=== PATIENT | female | born 1990 | race Caucasian/White ===

== ENCOUNTER 2017-12-20 04:06 | Emergency (ER) | payer SELFPAY ==
--- NOTE | 2017-12-20 04:17 | EDM.PDOC ---
ED HPI GENERAL MEDICAL PROBLEM - General Stated Complaint: AMBULANCE Time Seen by Provider: 12/20/17 04:13 - History of Present Illness INITIAL COMMENTS - FREE TEXT/NARRATIVE: HISTORY AND PHYSICAL: History of present illness: Patient 27-year-old female with history of self stimulating behavior presents and custody of law enforcement for self mutilating behavior in the form of cutting to her right lower leg which he sustained approximately 3 cm moderate depth laceration along with multiple superficial lacerations she denies update tetanus. This is old behavior for the patient she does have counseling for this she denies any suicidal or homicidal ideation Review of systems: As per history of present illness and below otherwise all systems reviewed and negative. Past medical history: As per history of present illness and as reviewed below otherwise noncontributory. Surgical history: As per history of present illness and as reviewed below otherwise noncontributory. Social history: No reported history of drug or alcohol abuse. Family history: As per history of present illness and as reviewed below otherwise noncontributory. Physical exam: HEENT: Atraumatic, normocephalic, pupils reactive, negative for conjunctival pallor or scleral icterus, mucous membranes moist, throat clear, neck supple, nontender, trachea midline. Lungs: Clear to auscultation, breath sounds equal bilaterally, chest nontender. Heart: S1S2, regular, negative for clicks, rubs, or JVD. Abdomen: Soft, nondistended, nontender. Negative for masses or hepatosplenomegaly. Negative for costovertebral tenderness. Pelvis: Stable nontender. Genitourinary: Deferred. Rectal: Deferred. Extremities: Patient has multiple superficial abrasions to her right leg with multiple superficial lacerations and one laceration is moderate depth approximately 3 cm. Neuro: Awake, alert, oriented. Cranial nerves II through XII unremarkable. Cerebellum unremarkable. Motor and sensory unremarkable throughout. Exam nonfocal. Diagnostics: None Therapeutics: Patient was anesthetized 1% lidocaine without epinephrine irrigated with copious amounts 0.9 normal saline prepped and draped in sterile manner and closed with 4-0 nylon interrupted sutures stratus was applied Impression: #1 self mutilating Behavior #2 laceration#3 medically clear for police hold Definitive disposition and diagnosis as appropriate pending reevaluation and review of above. ED ROS GENERAL - Review of Systems Review Of Systems: ROS reveals no pertinent complaints other than HPI. ED EXAM, GENERAL - Physical Exam Exam: See Below (See dictation) Departure - Departure Time of Disposition: 04:16 Disposition: Home, Self-Care 01 Condition: Good Clinical Impression: Leg laceration, Self mutilating behavior, Medical clearance for incarceration - Discharge Information Additional Instructions: The following information is given to patients seen in the emergency department who are being discharged to home. This information is to outline your options for follow-up care. We provide all patients seen in our emergency department with a follow-up referral. The need for follow-up, as well as the timing and circumstances, are variable depending upon the specifics of your emergency department visit. If you don't have a primary care physician on staff, we will provide you with a referral. We always advise you to contact your personal physician following an emergency department visit to inform them of the circumstance of the visit and for follow-up with them and/or the need for any referrals to a consulting specialist. The emergency department will also refer you to a specialist when appropriate. This referral assures that you have the opportunity for followup care with a specialist. All of these measure are taken in an effort to provide you with optimal care, which includes your followup. Under all circumstances we always encourage you to contact your private physician who remains a resource for coordinating your care. When calling for followup care, please make the office aware that this follow-up is from your recent emergency room visit. If for any reason you are refused follow-up, please contact the [facility] emergency department at and asked to speak to the emergency department charge nurse. Wound care is discussed suture removal 10-14 days return as needed as discussed follow-up private medical doctor
[2017-12-20] MEDS ORDERED: Diphtheria,Pertussis(Acell),Tetanus Vaccine 0.5 ML Syringe IM ONE (04:19)
== END 2017-12-20 06:20 ==
LOC: MW.ED 04:06
DX: S81.811A Laceration without foreign body, right lower leg, initial encounter (principal); Z02.89 Encounter for other administrative examinations; Z23 Encounter for immunization; X78.9XXA Intentional self-harm by unspecified sharp object, initial encounter
CPT/HCPCS: 90471; 90715; 99283-25

== ENCOUNTER 2020-04-18 10:33 | Inpatient (IN) | payer MEDICAID ==
[2020-04-18] MEDS: Lactated Ringers 1,000 ML IV SCH ×2 (10:15→11:20)
[2020-04-18] MEDS ORDERED: Sodium Chloride 0.9% 2.5 ML Syringe FLUSH PRN (10:38)
[2020-04-18] MEDS ORDERED: Citric Acid/Sodium Citrate Solution 30 ML Cup PO ONE (10:38)
[2020-04-18] MEDS ORDERED: Sodium Chloride 0.9% 10 ML Syringe FLUSH PRN (10:38)
[2020-04-18] MEDS ORDERED: ceFAZolin 2 GM in Premix Bag 1 BAG IV ONE (10:38)
[2020-04-18] MEDS ORDERED: Sodium Chloride 0.9% 10 ML SDV IV PRN (10:38)
[2020-04-18] MEDS ORDERED: Oxytocin/0.9 % Sodium Chloride 30 UNIT/500 ML BAG IV SCH (10:45)
--- NOTE | 2020-04-18 11:24 | PCM.PREANE ---
Preanesthetic Assessment - Anesthesia/Transfusion/Family Hx Anesthesia History: Prior Anesthesia Without Reaction Transfusion History: No Prior Transfusion(s) - Review of Systems General: No Symptoms Pulmonary: No Symptoms Cardiovascular: No Symptoms Gastrointestinal: No Symptoms Neurological: No Symptoms Other: Reports: None - Physical Assessment NPO Status Date: 04/18/20 NPO Status Time: 00:00 Vital Signs: bp 101/64, rr 17, p 95, spo2 99% room air, temp 97.5 Height: 1.7 m Weight: 74.843 kg ASA Class: 2 Mental Status: Alert & Oriented x3 Airway Class: Mallampati = 2 Dentition: Reports: Normal Dentition Thyro-Mental Finger Breadths: 3 Mouth Opening Finger Breadths: 3 ROM/Head Extension: Full Lungs: Clear to Auscultation, Normal Respiratory Effort Cardiovascular: Regular Rate, Regular Rhythm - Lab Values: Laboratory Last Values WBC 10.51 K/uL (4.0-11.0) 04/18/20 10:45 RBC 4.03 M/uL (4.30-5.90) L 04/18/20 10:45 Hgb 12.3 g/dL (12.0-16.0) 04/18/20 10:45 Hct 36.2 % (36.0-46.0) 04/18/20 10:45 MCV 89.8 fL (80.0-98.0) 04/18/20 10:45 MCH 30.5 pg (27.0-32.0) 04/18/20 10:45 MCHC 34.0 g/dL (31.0-37.0) 04/18/20 10:45 RDW Std Deviation 45.4 fl (28.0-62.0) 04/18/20 10:45 RDW Coeff of Heaven 14 % (11.0-15.0) 04/18/20 10:45 Plt Count 254 K/uL (150-400) 04/18/20 10:45 MPV 10.20 fL (7.40-12.00) 04/18/20 10:45 Nucleated RBC % 0.0 /100WBC 04/18/20 10:45 Nucleated RBCs # 0 K/uL 04/18/20 10:45 - Allergies Allergies/Adverse Reactions: Allergies Allergy/AdvReac Type Severity Reaction Status Date / Time No Known Allergies Allergy Verified 04/18/20 10:37 - Acknowledgements Anesthesia Type Planned: Spinal (The patient understands and accepts the anesthetic risks and benefits of spinal including failed spinal requiring conversion to a general anesthetic. All questions answered. The patient has consented. 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: Musculoskeletal History: Reports: Fibromyalgia Neurological History: Reports: None Psychiatric History: Reports: Anxiety, Bipolar, Depression Endocrine/Metabolic History: Reports: None Hematologic History: Reports: None Immunologic History: Reports: None Oncologic (Cancer) History: Reports: None Dermatologic History: Reports: None - Past Surgical History Head Surgeries/Procedures: Reports: None HEENT Surgical History: Reports: Other (See Below) (wisdom teeth extraction) Cardiovascular Surgical History: Reports: None Respiratory Surgical History: Reports: None GI Surgical History: Reports: None Female Surgical History: Reports: Section Endocrine Surgical History: Reports: None Neurological Surgical History: Reports: None Musculoskeletal Surgical History: Reports: Other (See Below) Other Musculoskeletal Surgeries/Procedures:: left bunionectomy Oncologic Surgical History: Reports: None Dermatological Surgical History: Reports: None - History Comment History Comment: waiting for blood type - SUBSTANCE USE Tobacco Use Status *Q: Current Every Day Tobacco User Tobacco Use Within Last Twelve Months: Cigarettes Second Hand Smoke Exposure: Yes Days Per Week of Alcohol Use: 0 Recreational Drug Use History: No - HOME MEDS Home Medications: Home Meds Acetaminophen [Tylenol Extra Strength] 1 - 2 tab PO ASDIRECTED PRN 02/18/20 [History] Calcium Carbonate [Tums Extra Strength] 1 - 2 tab CHEW ASDIRECTED PRN 02/18/20 [History] Gabapentin [Neurontin] 600 mg PO TID 02/18/20 [History] Pnv No.95/Ferrous Fum/Folic AC [ Tablet] 1 tab PO DAILY 02/18/20 [History] lamoTRIgine [LaMICtal] 150 mg PO BID 02/18/20 [History] busPIRone [Buspar] 10 mg PO BID 04/12/20 [History] - CURRENT (IN HOUSE) MEDS Current Meds: Current Medications Oxytocin/Sodium Chloride (Oxytocin 30 Unit/500 Ml-Ns) 30 unit in 500 mls @ 250 mls/hr IV TITRATE SHAW Lactated Ringer's (Ringers, Lactated) 1,000 mls @ 500 mls/hr IV BOLUS [facility] Last Admin: 04/18/20 11:20 Dose: 999 mls/hr Documented by: Sodium Chloride (Saline Flush) 10 ml FLUSH ASDIRECTED PRN PRN Reason: Keep Vein Open Sodium Chloride (Saline Flush) 2.5 ml FLUSH ASDIRECTED PRN PRN Reason: Keep Vein Open Sodium Chloride (Normal Saline) 10 ml IV ASDIRECTED PRN PRN Reason: IV Use Discontinued Medications Citric Acid/Sodium Citrate (Bicitra Solution) 30 ml PO ONETIME ONE Stop: 04/18/20 10:39 Cefazolin Sodium/Dextrose 2 gm (/ Premix) 50 mls @ 100 mls/hr IV ONETIME ONE Stop: 04/18/20 11:07
[2020-04-18] MEDS ORDERED: Morphine PF 10 MG/10 ML SDV ONE (11:25)
[2020-04-18] MEDS ORDERED: ceFAZolin/Dextrose,Iso-Osmotic 2 GM/50 ML Duplex Bag IV ONE (11:43)
[2020-04-18] MEDS ORDERED: Oxytocin 10 Units/1 ML SDV ONE (11:44)
[2020-04-18] MEDS ORDERED: Ondansetron 4 MG/2 ML SDV ONE (12:38)
[2020-04-18] MEDS ORDERED: Dexamethasone 4 MG/ML 5 ML MDV ONE (12:38)
[2020-04-18] MEDS ORDERED: diphenhydrAMINE 50 MG/ML SDV IVPUSH PRN ×2 (12:54→13:06)
[2020-04-18] MEDS ORDERED: Naloxone 0.4 MG/ML Syringe IVPUSH PRN (12:54)
[2020-04-18] MEDS ORDERED: Acetaminophen/HYDROcodone 325-5 MG Tab PO PRN (12:54)
[2020-04-18] MEDS ORDERED: Acetaminophen/oxyCODONE 325-5 MG Tab PO PRN (12:54)
[2020-04-18] MEDS ORDERED: Ketorolac 30 MG/ML SDV ONE (12:58)
[2020-04-18] MEDS ORDERED: Lanolin 100% Cream 7 GM Tube TOP PRN (13:06)
[2020-04-18] MEDS ORDERED: Bisacodyl 10 MG Supp RECTAL PRN (13:06)
[2020-04-18] MEDS ORDERED: Oxytocin 10 Units/1 ML SDV IM PRN (13:06)
[2020-04-18] MEDS ORDERED: Ibuprofen 800 MG Tab PO PRN (13:06)
[2020-04-18] MEDS ORDERED: Ondansetron 4 MG/2 ML SDV IVPUSH PRN (13:06)
[2020-04-18] MEDS ORDERED: Misoprostol 200 MCG Tab RECTAL PRN (13:06)
[2020-04-18] MEDS ORDERED: Methylergonovine 0.2 MG/1 ML Amp IM PRN (13:06)
[2020-04-18] MEDS ORDERED: Tranexamic Acid 1,000 MG in Sodium Chloride 0.9% 100 ML IV PRN (13:06)
[2020-04-18] MEDS ORDERED: Oxytocin/Lactated Ringers 30 UNIT/500 ML BAG IV SCH (13:15)
[2020-04-18] MEDS ORDERED: Lactated Ringers 1,000 ML IV SCH (13:15)
--- NOTE | 2020-04-18 13:16 | PCM.OPNOTE ---
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 IUGR. Anti-[place] antibodies. Bicornuate uterus. History of section x1, declines trial of labor. Depression/Anxiety Post-Op Diagnosis: 29yo @ 37w4d. IUGR. Anti-Becka antibodies. Bicornuate uterus. History of section x1, declines trial of labor. Depression/Anxiety Anesthesia Technique: Spinal Primary Surgeon: Ifrah Mills Pathology: Placenta sent to pathology for IUGR Fluid Replacement, Intraop: 2,900 Output, Urine Amount: 25 EBL in mLs: 400 Complications: None Condition: Good
--- NOTE | 2020-04-18 14:00 | PCM.POSTAN ---
POST ANESTHESIA ASSESSMENT - MENTAL STATUS Mental Status: Alert - RESPIRATORY Respiratory Status: Respiratory Rate WNL - CARDIOVASCULAR CV Status: Pulse Rate WNL, Slow Pulse Rate - GASTROINTESTINAL GI Status: No Symptoms - POST OP HYDRATION Hydration Status: Adequate & Stable
--- NOTE | 2020-04-18 14:14 | OR ---
SURGEON: Ifrah Mills MD DATE OF PROCEDURE: 04/18/2020 PREOPERATIVE DIAGNOSES: 1. 29-year-old, G3, P1-0-1-1 at 37 weeks' and 3 days' gestation. 2. Intrauterine growth restriction. 3. 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 4. Bicornuate uterus. 5. History of delivery x1 and declines trial of labor. 6. Depression and anxiety. 7. Fibromyalgia. POSTOPERATIVE DIAGNOSES: 1. 29-year-old, G3, P2-0-1-2 at 37 weeks' and 3 days' gestation. 2. Intrauterine growth restriction. 3. 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 4. Bicornuate uterus. 5. History of delivery x1 and declines trial of labor. 6. Depression and anxiety. 7. Fibromyalgia. PROCEDURE: Repeat low transverse section via Pfannenstiel. ANESTHESIA: Spinal by Dr. Guadarrama. IV FLUIDS: 2900 mL LR. URINE OUTPUT: 25 mL clear yellow urine. ESTIMATED BLOOD LOSS: 400 mL. FINDINGS: Live male infant in cephalic presentation. score of 8 and 9 at one and five minutes respectively. Weight 2810 g. Fetus in the right horn of the bicornuate uterus. Normal-appearing ovaries and tubes. Placenta sent to pathology due to intrauterine growth restriction. INDICATION: This is a 29-year-old G3, P1-0-1-1, who presented at 37 weeks' and 3 days' gestation for planned repeat delivery. At 36 weeks' and 3 days' gestation, the patient had a growth restriction by her growth ultrasound by maternal medicine which discovered intrauterine growth restriction. monitoring was being performed due to Becka immunization of the patient. She had a bicornuate uterus and history of delivery x1. She declined trial of labor. Preop COVID test was negative. DESCRIPTION OF PROCEDURE: The patient was taken to the operating room, where spinal anesthesia was obtained. She was placed in dorsal supine position with a leftward tilt. She was prepared and draped in normal sterile fashion. A Pfannenstiel skin incision was made using the previous scar and carried deep to the underlying layer of fascia with the scalpel and Bovie. Fascia was incised in the midline and the incision extended laterally with curved Mac scissors. The superior aspect of the fascial incision was grasped with Maggie clamps, elevated, and underlying rectus muscles dissected off bluntly and with curved Mac scissors. In a similar fashion, the inferior aspect of the fascial incision was grasped with Maggie clamps, elevated, and the underlying rectus muscles dissected off bluntly. The peritoneum was identified in the midline and a hemostat used to enter bluntly. The peritoneal incision was extended using manual traction. Large Jordan retractor was placed. A bladder flap was created in the usual manner. A low uterine hysterotomy was created. Hysterotomy was extended using manual traction. Artificial rupture of membranes occurred with clear fluid noted. The 's head was delivered atraumatically followed by the shoulders and remainder of the body. After approximately 60 seconds, the cord was clamped and cut, and the was handed off to the awaiting nurse. The placenta was then manually removed. Cord blood was obtained. The uterus was cleared of all clots and debris. The hysterotomy was repaired with a running lock stitch of 0 Vicryl suture. A second stitch of the same suture was used to obtain hemostasis. The hysterotomy was inspected and noted to be hemostatic. The gutters were cleared of clots. The Jordan retractor was removed. The fascia was closed with 0 Vicryl suture in a running fashion. The subcutaneous tissue was irrigated. The skin was closed with 3-0 Monocryl in subcuticular fashion. All sponge, lap, and needle counts were correct x3. 2 g of Ancef was given prior to incision. The patient tolerated the delivery well. [id number] / MODL /[id number] SKYLAR
[2020-04-18] MEDS: Ketorolac 30 MG/ML SDV IVPUSH SCH (19:00)
[2020-04-18] MEDS ORDERED: LAMOTRIGINE 150 MG PO SCH (21:00)
[2020-04-18] MEDS: Docusate Sodium 100 MG Cap PO SCH (21:25)
[2020-04-18] MEDS: lamoTRIgine 100 MG Tab PO SCH (21:25)
[2020-04-18] MEDS: Gabapentin 300 MG Cap PO SCH (21:26)
[2020-04-18] MEDS: busPIRone 5 MG Tab PO SCH (21:26)
[2020-04-19] MEDS: Ketorolac 30 MG/ML SDV IVPUSH SCH ×5 (00:33→19:37)
[2020-04-19] MEDS: Gabapentin 300 MG Cap PO SCH ×4 (07:05→22:04)
[2020-04-19] MEDS: Acetaminophen/oxyCODONE 325-5 MG Tab PO PRN ×3 (07:46→19:49)
--- NOTE | 2020-04-19 09:03 | PCM48HPAN ---
Post Anesthesia Note - EVALUATION WITHIN 48HRS OF ANESTHETIC Vital Signs in Normal Range: Yes Patient Participated in Evaluation: Yes Respiratory Function Stable: Yes Airway Patent: Yes Cardiovascular Function Stable: Yes Hydration Status Stable: Yes Pain Control Satisfactory: Yes Nausea and Vomiting Control Satisfactory: Yes Mental Status Recovered: Yes Vital Signs: Last Vital Signs Temp 36.5 C 04/19/20 08:16 Pulse 70 04/19/20 08:16 Resp 12 04/19/20 08:16 BP 110/53 L 04/19/20 08:16 Pulse Ox 95 04/19/20 08:16 - COMMENTS/OBSERVATIONS Free Text/Narrative:: Ambulating without difficulty, reports full return of strength and sensation to BLE. Denies nausea. Earlier this AM reported pain 10. Relieved following pain med., reports adequate analgesia now with pain 4-10/17.
--- NOTE | 2020-04-19 09:13 | PCM.PNPP ---
- General Info Date of Service: 04/19/20 Subjective Update: Patient reports pain uncontrolled overnight, recently requested pain medication. Moderate lochia. Has not attempted or pumping, would like to start. Denies dizziness, chest pain, shortness of breath. Functional Status: Reports: Tolerating Diet, Ambulating, Urinating - Review of Systems General: Reports: No Symptoms HEENT: Reports: No Symptoms Pulmonary: Reports: No Symptoms Cardiovascular: Reports: No Symptoms Gastrointestinal: Reports: No Symptoms Genitourinary: Reports: No Symptoms Musculoskeletal: Reports: No Symptoms Skin: Reports: No Symptoms Neurological: Reports: No Symptoms Psychiatric: Reports: No Symptoms - Patient Data Vital Signs - Most Recent: Last Vital Signs Temp 36.5 C 04/19/20 08:16 Pulse 70 04/19/20 08:16 Resp 12 04/19/20 08:16 BP 110/53 L 04/19/20 08:16 Pulse Ox 95 04/19/20 08:16 Weight - Most Recent: 74.843 kg I&O - Last 24 Hours: Intake & Output 04/18/20 04/19/20 04/19/20 22:59 06:59 14:59 Intake Total 675 1000 Output Total 550 850 Balance 125 150 Lab Results - Last 24 Hours: Laboratory Results - last 24 hr 04/18/20 04/18/20 04/18/20 Range/Units 10:45 10:45 10:45 WBC 10.51 (4.0-11.0) K/uL RBC 4.03 L (4.30-5.90) M/uL Hgb 12.3 (12.0-16.0) g/dL Hct 36.2 (36.0-46.0) % MCV 89.8 (80.0-98.0) fL MCH 30.5 (27.0-32.0) pg MCHC 34.0 (31.0-37.0) g/dL RDW Std Deviation 45.4 (28.0-62.0) fl RDW Coeff of [place] 14 (11.0-15.0) % Plt Count 254 (150-400) K/uL MPV 10.20 (7.40-12.00) fL Nucleated RBC % 0.0 /100WBC Nucleated RBCs # 0 K/uL Blood Type A POSITIVE Antibody Screen POSITIVE Antibody Identification Anti-K Antigen Typing K Antigen - NEGATIVE Crossmatch See Detail 04/19/20 Range/Units 05:30 WBC (4.0-11.0) K/uL RBC (4.30-5.90) M/uL Hgb 11.0 L (12.0-16.0) g/dL Hct 32.5 L (36.0-46.0) % MCV (80.0-98.0) fL MCH (27.0-32.0) pg MCHC (31.0-37.0) g/dL RDW Std Deviation (28.0-62.0) fl RDW Coeff of [place] (11.0-15.0) % Plt Count (150-400) K/uL MPV (7.40-12.00) fL Nucleated RBC % /100WBC Nucleated RBCs # K/uL Blood Type Antibody Screen Antibody Identification Antigen Typing Crossmatch Med Orders - Current: Current Medications Hydrocodone Bitart/Acetaminophen ([place] 325-5 Mg) 2 tab PO Q6H PRN PRN Reason: Pain (moderate 4-6) Bisacodyl (Dulcolax) 10 mg RECTAL ONETIME PRN PRN Reason: Constipation Buspirone HCl (Buspar) 10 mg PO BID [facility] Last Admin: 04/18/20 21:26 Dose: 10 mg Documented by: Diphenhydramine HCl (Benadryl) 25 mg IVPUSH Q4H PRN PRN Reason: Itching Stop: 04/19/20 12:55 Diphenhydramine HCl (Benadryl) 25 mg IVPUSH Q6H PRN PRN Reason: Itching or Nausea Docusate Sodium (Colace) 100 mg PO BID [facility] Last Admin: 04/18/20 21:25 Dose: 100 mg Documented by: Emollient Ointment (Lansinoh Hpa) 0 gm TOP ASDIRECTED PRN PRN Reason: Sore Nipples Gabapentin (Neurontin) 600 mg PO TID [facility] Last Admin: 04/19/20 07:05 Dose: 600 mg Documented by: Oxytocin/Sodium Chloride (Oxytocin 30 Unit/500 Ml-Ns) 30 unit in 500 mls @ 250 mls/hr IV TITRATE [facility] Lactated Ringer's (Ringers, Lactated) 1,000 mls @ 500 mls/hr IV BOLUS [facility] Last Admin: 04/18/20 11:20 Dose: 999 mls/hr Documented by: Lactated Ringer's (Ringers, Lactated) 1,000 mls @ 125 mls/hr IV ASDIRECTED [facility] Last Admin: 04/18/20 13:36 Dose: 125 mls/hr Documented by: Oxytocin/Lactated Ringer's (Pitocin In Lr 30 Units/500 Ml) 30 unit in 500 mls @ 999 mls/hr IV TITRATE [facility]; Protocol Tranexamic Acid 1,000 mg/ (Sodium Chloride) 110 mls @ 660 mls/hr IV ONETIME PRN PRN Reason: Bleeding Ibuprofen (Motrin) 800 mg PO Q8H PRN PRN Reason: mild pain or fever Ketorolac Tromethamine (Toradol) 30 mg IVPUSH Q6H [facility] Stop: 04/19/20 19:16 Lamotrigine (Lamotrigine) 150 mg PO BID [facility] Last Admin: 04/18/20 21:25 Dose: 150 mg Documented by: Methylergonovine Maleate (Methergine) 0.2 mg IM ONETIME PRN PRN Reason: Excessive Vaginal Bleeding Misoprostol (Cytotec) 1,000 mcg RECTAL ONETIME PRN PRN Reason: excessive bleeding Naloxone HCl (Narcan) 0.1 mg IVPUSH ONETIME PRN PRN Reason: Respiratory Depression Stop: 04/19/20 12:55 Ondansetron HCl (Zofran) 4 mg IVPUSH Q4H PRN PRN Reason: Nausea/Vomiting Oxycodone/Acetaminophen (Percocet 325-5 Mg) 1 tab PO ONETIME PRN PRN Reason: Pain (mild 1-3) Oxycodone/Acetaminophen (Percocet 325-5 Mg) 1 tab PO Q4H PRN PRN Reason: Pain (moderate 4-6) Oxycodone/Acetaminophen (Percocet 325-5 Mg) 2 tab PO Q4H PRN PRN Reason: Pain (moderate 4-6) Last Admin: 04/19/20 07:46 Dose: 2 tab Documented by: Oxytocin (Pitocin) 10 unit IM ASDIRECTED PRN PRN Reason: Excessive Vaginal Bleeding Sodium Chloride (Saline Flush) 10 ml FLUSH ASDIRECTED PRN PRN Reason: Keep Vein Open Sodium Chloride (Saline Flush) 2.5 ml FLUSH ASDIRECTED PRN PRN Reason: Keep Vein Open Sodium Chloride (Normal Saline) 10 ml IV ASDIRECTED PRN PRN Reason: IV Use Discontinued Medications Cefazolin Sodium/Dextrose (Ancef) Confirm Administered Dose 2 gm IV .STK-MED ONE Stop: 04/18/20 11:44 Citric Acid/Sodium Citrate (Bicitra Solution) 30 ml PO ONETIME ONE Stop: 04/18/20 10:39 Dexamethasone (Dexamethasone) Confirm Administered Dose 20 mg .ROUTE .STK-MED ONE Stop: 04/18/20 12:39 Cefazolin Sodium/Dextrose 2 gm (/ Premix) 50 mls @ 100 mls/hr IV ONETIME ONE Stop: 04/18/20 11:07 Ibuprofen (Motrin) 800 mg PO Q8H PRN PRN Reason: mild pain or fever Ketorolac Tromethamine (Toradol) Confirm Administered Dose 30 mg .ROUTE .STK-MED ONE Stop: 04/18/20 12:59 Ketorolac Tromethamine (Toradol) 30 mg IVPUSH Q6H [facility] Stop: 04/19/20 13:16 Last Admin: 04/19/20 07:15 Dose: 30 mg Documented by: Morphine Sulfate (Duramorph Pf) Confirm Administered Dose 10 mg .ROUTE .STK-MED ONE Stop: 04/18/20 11:26 Non-Formulary Medication (Lamotrigine [Lamictal]) 150 mg PO BID [facility] Ondansetron HCl (Zofran) Confirm Administered Dose 4 mg .ROUTE .STK-MED ONE Stop: 04/18/20 12:39 Oxytocin (Pitocin) Confirm Administered Dose 30 unit .ROUTE .STK-MED ONE Stop: 04/18/20 11:45 - Infant Interaction Infant Disposition, : [place] to Nursery Infant Interaction: Unable to Hold at this Time Feeding: Bottle Fed - Recovery Exam Fundal Tone: Firm Fundal Level: At Umbilicus Fundal Placement: Midline Lochia Amount: Scant Bladder Status: Nonpalpable Urinary Elimination: Other (see below) (hussein recently removed, has not yet attempted to void) - Exam General: Alert, Oriented Neck: Supple Lungs: Normal Respiratory Effort GI/Abdominal Exam: Soft, Non-Tender, No Distention Extremities: Non-Tender, No Pedal Edema Skin: Warm, Dry, Intact Wound/Incisions: Dressing Dry and Intact Neurological: No New Focal Deficit Psy/Mental Status: Alert, Normal Affect, Normal Mood - Problem List & Annotations (1) S/P repeat low transverse SNOMED Code(s): 988006856, 37432064, 773861727, 451281236, [id number] Code(s): Z98.891 - HISTORY OF UTERINE SCAR FROM PREVIOUS SURGERY Status: Acute Current Visit: Yes - Problem List Review Problem List Initiated/Reviewed/Updated: Yes - My Orders Last 24 Hours: My Active Orders 04/18/20 10:00 Patient Status [ADT] Routine 04/18/20 10:38 Sodium Chloride 0.9% [Normal Saline] 10 ml IV ASDIRECTED PRN Sodium Chloride 0.9% [Saline Flush] 10 ml FLUSH ASDIRECTED PRN Sodium Chloride 0.9% [Saline Flush] 2.5 ml FLUSH ASDIRECTED PRN Resuscitation Status Routine 04/18/20 10:39 Up ad Gita [RC] ASDIRECTED Verify Patient Consent Obtain [RC] ASDIRECTED Peripheral IV Insertion Adult [OM.PC] Routine Schedule Procedure [COMM] Per Unit Routine 04/18/20 10:40 Notify Provider Vital Signs [RC] PRN 04/18/20 10:45 RED BLOOD CELLS LP [BBK] Routine RPR (SYPHILIS SERO) W/ RFLX [REF] Routine Lactated Ringers [Ringers, Lactated] 1,000 ml IV BOLUS Oxytocin/0.9 % Sodium Chloride [Oxytocin 30 Unit/500 ML-NS] 30 unit in 500 ml IV TITRATE 04/18/20 Lunch Regular Diet [DIET] 04/18/20 13:06 Patient Status [ADT] Routine Ambulate [RC] PER UNIT ROUTINE Communication Order [RC] PER UNIT ROUTINE Communication Order [RC] Per Unit Routine Intake and Output [RC] QSHIFT May Shower [RC] ASDIRECTED Notify Provider Intake and Out [RC] ASDIRECTED Notify Provider Vital Signs [RC] ASDIRECTED RT Incentive Spirometry [RC] Q2HWA Urinary Catheter Removal [RC] PER UNIT ROUTINE Acetaminophen/oxyCODONE [Percocet 325-5 MG] 1 tab PO Q4H PRN Acetaminophen/oxyCODONE [Percocet 325-5 MG] 2 tab PO Q4H PRN Lanolin [Lansinoh HPA] See Dose Instructions TOP ASDIRECTED PRN Methylergonovine [Methergine] 0.2 mg IM ONETIME PRN Ondansetron [Zofran] 4 mg IVPUSH Q4H PRN Oxytocin [Pitocin] 10 unit IM ASDIRECTED PRN Tranexamic Acid [Cyklokapron] 1,000 mg Sodium Chloride 0.9% [Normal Saline] 100 ml IV ONETIME bisacodyL [Dulcolax] 10 mg RECTAL ONETIME PRN diphenhydrAMINE [Benadryl] 25 mg IVPUSH Q6H PRN miSOPROStoL [Cytotec] 1,000 mcg RECTAL ONETIME PRN Abdominal Binder [OM.PC] Routine Assess Lochia [WOMSER] Per Unit Routine Assess Uterine Involution [WOMSER] Per Unit Routine Breast Pump [WOMSER] Per Unit Routine DVT/VTE Prophylaxis Reflex [OM.PC] Routine Heat Therapy [OM.PC] Routine Ice Therapy [OM.PC] Routine Sequential Compression Device [OM.PC] Per Unit Routine 04/18/20 13:07 Antiembolic Devices [RC] PER UNIT ROUTINE Communication Order [RC] PER UNIT ROUTINE Peripheral IV Discontinue [OM.PC] Routine 04/18/20 13:08 Cooling Warming Measures [RC] ASDIRECTED 04/18/20 13:09 Antiembolic Devices [RC] .Routine VTE/DVT Education [RC] PER UNIT ROUTINE 04/18/20 13:15 Lactated Ringers [Ringers, Lactated] 1,000 ml IV ASDIRECTED Oxytocin/Lactated Ringers [Pitocin in LR 30 Units/500 ML] 30 unit in 500 ml IV TITRATE 04/18/20 14:00 Gabapentin [Neurontin] 600 mg PO TID 04/18/20 21:00 Docusate Sodium [Colace] 100 mg PO BID busPIRone [Buspar] 10 mg PO BID lamoTRIgine 150 mg PO BID 04/19/20 13:15 Ketorolac [Toradol] 30 mg IVPUSH Q6H 04/20/20 01:15 Ibuprofen [Motrin] 800 mg PO Q8H PRN - Assessment Assessment:: 29yo s/p CD#2 at 37w3d, POD#1 - Plan Plan:: 1. 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 Bicornuate uterus 4. Anxiety/depression - continue home meds 5. Fibromyalgia - continue home meds 6. Dispo - plan discharge home tomorrow if baby cleared by [employer]
[2020-04-19] MEDS: Docusate Sodium 100 MG Cap PO SCH ×2 (10:20→21:28)
[2020-04-19] MEDS: busPIRone 5 MG Tab PO SCH ×2 (10:20→21:29)
[2020-04-19] MEDS: lamoTRIgine 100 MG Tab PO SCH ×2 (10:30→21:29)
[2020-04-20] MEDS: Ibuprofen 800 MG Tab PO PRN ×2 (02:43→11:00)
[2020-04-20] MEDS: Acetaminophen/oxyCODONE 325-5 MG Tab PO PRN ×3 (02:44→11:01)
[2020-04-20] MEDS: Gabapentin 300 MG Cap PO SCH (06:29)
--- NOTE | 2020-04-20 08:08 | PCM.PNPP ---
- General Info Date of Service: 04/20/20 Subjective Update: Patient states she has not been sleeping well. Increased Percocet to 1 q4h overnight, pain still not controlled. Ambulating without difficulty. Has had 2 bowel movements. Lochia minimal-moderate. Difficulty with latch. Functional Status: Reports: Tolerating Diet, Ambulating, Urinating. Denies: Pain Controlled - Review of Systems General: Reports: No Symptoms HEENT: Reports: No Symptoms Pulmonary: Reports: No Symptoms Cardiovascular: Reports: No Symptoms Gastrointestinal: Reports: No Symptoms Genitourinary: Reports: No Symptoms Musculoskeletal: Reports: No Symptoms Skin: Reports: No Symptoms Neurological: Reports: No Symptoms Psychiatric: Reports: No Symptoms - Patient Data Vital Signs - Most Recent: Last Vital Signs Temp 35.9 C L 04/20/20 07:29 Pulse 63 04/20/20 07:29 Resp 22 H 04/20/20 07:29 BP 114/57 L 04/20/20 07:29 Pulse Ox 97 04/20/20 07:29 Weight - Most Recent: 74.843 kg Med Orders - Current: Current Medications Hydrocodone Bitart/Acetaminophen ([place] 325-5 Mg) 2 tab PO Q6H PRN PRN Reason: Pain (moderate 4-6) Bisacodyl (Dulcolax) 10 mg RECTAL ONETIME PRN PRN Reason: Constipation Buspirone HCl (Buspar) 10 mg PO BID [facility] Last Admin: 04/19/20 21:29 Dose: 10 mg Documented by: Diphenhydramine HCl (Benadryl) 25 mg IVPUSH Q6H PRN PRN Reason: Itching or Nausea Docusate Sodium (Colace) 100 mg PO BID [facility] Last Admin: 04/19/20 21:28 Dose: 100 mg Documented by: Emollient Ointment (Lansinoh Hpa) 0 gm TOP ASDIRECTED PRN PRN Reason: Sore Nipples Gabapentin (Neurontin) 600 mg PO TID [facility] Last Admin: 04/20/20 06:29 Dose: 600 mg Documented by: Oxytocin/Sodium Chloride (Oxytocin 30 Unit/500 Ml-Ns) 30 unit in 500 mls @ 250 mls/hr IV TITRATE [facility] Lactated Ringer's (Ringers, Lactated) 1,000 mls @ 500 mls/hr IV BOLUS [facility] Last Admin: 04/18/20 11:20 Dose: 999 mls/hr Documented by: Lactated Ringer's (Ringers, Lactated) 1,000 mls @ 125 mls/hr IV ASDIRECTED [facility] Last Admin: 04/18/20 13:36 Dose: 125 mls/hr Documented by: Oxytocin/Lactated Ringer's (Pitocin In Lr 30 Units/500 Ml) 30 unit in 500 mls @ 999 mls/hr IV TITRATE [facility]; Protocol Tranexamic Acid 1,000 mg/ (Sodium Chloride) 110 mls @ 660 mls/hr IV ONETIME PRN PRN Reason: Bleeding Ibuprofen (Motrin) 800 mg PO Q8H PRN PRN Reason: mild pain or fever Last Admin: 04/20/20 02:43 Dose: 800 mg Documented by: Lamotrigine (Lamotrigine) 150 mg PO BID [facility] Last Admin: 04/19/20 21:29 Dose: 150 mg Documented by: Methylergonovine Maleate (Methergine) 0.2 mg IM ONETIME PRN PRN Reason: Excessive Vaginal Bleeding Misoprostol (Cytotec) 1,000 mcg RECTAL ONETIME PRN PRN Reason: excessive bleeding Ondansetron HCl (Zofran) 4 mg IVPUSH Q4H PRN PRN Reason: Nausea/Vomiting Oxycodone/Acetaminophen (Percocet 325-5 Mg) 1 tab PO ONETIME PRN PRN Reason: Pain (mild 1-3) Oxycodone/Acetaminophen (Percocet 325-5 Mg) 1 tab PO Q4H PRN PRN Reason: Pain (moderate 4-6) Last Admin: 04/20/20 06:29 Dose: 1 tab Documented by: Oxycodone/Acetaminophen (Percocet 325-5 Mg) 2 tab PO Q4H PRN PRN Reason: Pain (moderate 4-6) Last Admin: 04/19/20 12:09 Dose: 2 tab Documented by: Oxytocin (Pitocin) 10 unit IM ASDIRECTED PRN PRN Reason: Excessive Vaginal Bleeding Sodium Chloride (Saline Flush) 10 ml FLUSH ASDIRECTED PRN PRN Reason: Keep Vein Open Sodium Chloride (Saline Flush) 2.5 ml FLUSH ASDIRECTED PRN PRN Reason: Keep Vein Open Sodium Chloride (Normal Saline) 10 ml IV ASDIRECTED PRN PRN Reason: IV Use Discontinued Medications Cefazolin Sodium/Dextrose (Ancef) Confirm Administered Dose 2 gm IV .STK-MED ONE Stop: 04/18/20 11:44 Citric Acid/Sodium Citrate (Bicitra Solution) 30 ml PO ONETIME ONE Stop: 04/18/20 10:39 Dexamethasone (Dexamethasone) Confirm Administered Dose 20 mg .ROUTE .STK-MED ONE Stop: 04/18/20 12:39 Diphenhydramine HCl (Benadryl) 25 mg IVPUSH Q4H PRN PRN Reason: Itching Stop: 04/19/20 12:55 Cefazolin Sodium/Dextrose 2 gm (/ Premix) 50 mls @ 100 mls/hr IV ONETIME ONE Stop: 04/18/20 11:07 Ibuprofen (Motrin) 800 mg PO Q8H PRN PRN Reason: mild pain or fever Ketorolac Tromethamine (Toradol) Confirm Administered Dose 30 mg .ROUTE .STK-MED ONE Stop: 04/18/20 12:59 Ketorolac Tromethamine (Toradol) 30 mg IVPUSH Q6H [facility] Stop: 04/19/20 13:16 Last Admin: 04/19/20 10:28 Dose: Not Given Documented by: Ketorolac Tromethamine (Toradol) 30 mg IVPUSH Q6H [facility] Stop: 04/19/20 19:16 Last Admin: 04/19/20 19:37 Dose: 30 mg Documented by: Morphine Sulfate (Duramorph Pf) Confirm Administered Dose 10 mg .ROUTE .STK-MED ONE Stop: 04/18/20 11:26 Naloxone HCl (Narcan) 0.1 mg IVPUSH ONETIME PRN PRN Reason: Respiratory Depression Stop: 04/19/20 12:55 Non-Formulary Medication (Lamotrigine [Lamictal]) 150 mg PO BID [facility] Ondansetron HCl (Zofran) Confirm Administered Dose 4 mg .ROUTE .STK-MED ONE Stop: 04/18/20 12:39 Oxytocin (Pitocin) Confirm Administered Dose 30 unit .ROUTE .STK-MED ONE Stop: 04/18/20 11:45 - Interaction Infant Disposition, : [place] at Bedside Interaction: Holding Infant Feeding: Attempted ; Nursed Fair/Poor, Bottle Fed Infant, Difficulty with Latch-on, Encouraged to Breastfeed - Recovery Exam Fundal Tone: Firm Fundal Level: 1 Fingerbreadths Below Umbilicus Fundal Placement: Midline Lochia Amount: Scant Lochia Color: Rubra/Red Bladder Status: Voiding Urinary Elimination: Voided - Exam General: Alert, Oriented Neck: Supple Lungs: Normal Respiratory Effort GI/Abdominal Exam: Soft, Non-Tender, No Distention Extremities: No Pedal Edema Skin: Warm, Dry, Intact Wound/Incisions: Healing Well Neurological: No New Focal Deficit Psy/Mental Status: Alert, Normal Affect, Normal Mood - Problem List & Annotations (1) S/P repeat low transverse SNOMED Code(s): 505900112, [id number], 451089447, [id number], [id number] Code(s): Z98.891 - HISTORY OF UTERINE SCAR FROM PREVIOUS SURGERY Status: Acute Current Visit: Yes - Problem List Review Problem List Initiated/Reviewed/Updated: Yes - My Orders Last 24 Hours: My Active Orders 04/20/20 01:15 Ibuprofen [Motrin] 800 mg PO Q8H PRN 04/20/20 08:05 Ready for Discharge [RC] PER UNIT ROUTINE - Assessment Assessment:: 29yo s/p CD#2 at 37w3d, POD#2 - Plan Plan:: 1. 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 Bicornuate uterus 4. Anxiety/depression - continue home meds 5. Fibromyalgia - continue home meds 6. Dispo - discharge home today, will send Rx for breast pump to [facility].
[2020-04-20] MEDS: Docusate Sodium 100 MG Cap PO SCH (09:32)
[2020-04-20] MEDS: busPIRone 5 MG Tab PO SCH (09:32)
[2020-04-20] MEDS: lamoTRIgine 100 MG Tab PO SCH (09:32)
== END 2020-04-20 14:59 | disposition home or self-care (01) | DRG 788 ==
LOC: MW.OB 10:33
PROVIDERS: ADMIT Obstetrics & Gynecology; ATTEND Obstetrics & Gynecology
PROC: 10D00Z1 Extraction of Products of Conception, Low, Open Approach (ICD-10-PCS; principal; 2020-04-18)
DX: O34.211 Maternal care for low transverse scar from previous cesarean delivery (principal); Z3A.36 36 weeks gestation of pregnancy; Z37.0 Single live birth; O36.5930 Maternal care for other known or suspected poor fetal growth, third trimester, not applicable or unspecified; O34.03 Maternal care for unspecified congenital malformation of uterus, third trimester; Q51.3 Bicornate uterus; O99.344 Other mental disorders complicating childbirth; F41.9 Anxiety disorder, unspecified; F32.9 Major depressive disorder, single episode, unspecified; O99.334 Smoking (tobacco) complicating childbirth; F17.210 Nicotine dependence, cigarettes, uncomplicated; Z20.828 Contact with and (suspected) exposure to other viral communicable diseases
CPT/HCPCS: 01961; 36415; 51702; 59025; 85014; 85018; 85027; 86592; 86850; 86870; 86900; 86901; 86902; 86920; 86921; 86922; 88307; A9270-GY; J0690; J1100; J1885; J2270; J2405; J2590; J7120

== ENCOUNTER 2022-03-30 19:42 | Emergency (ER) | payer MEDICAID ==
[2022-03-30] MEDS ORDERED: Sodium Chloride 0.9% 10 ML Syringe FLUSH PRN (20:17)
[2022-03-30] MEDS ORDERED: Sodium Chloride 0.9% 1,000 ML IV ONE (20:17)
[2022-03-30] MEDS ORDERED: Ketorolac 30 MG/ML SDV IVPUSH ONE (20:17)
[2022-03-30] MEDS ORDERED: Ondansetron 4 MG/2 ML SDV IVPUSH ONE (20:17)
[2022-03-30] MEDS ORDERED: Sodium Chloride 0.9% 2.5 ML Syringe FLUSH PRN (20:17)
[2022-03-30 21:04] LABS: CARBON DIOXIDE,CO2 25.8 mmol/L (21.0-32.0)
== END 2022-03-30 22:33 | disposition home or self-care (01) ==
LOC: MW.ED 19:42
DX: N83.201 Unspecified ovarian cyst, right side (principal)
CPT/HCPCS: 36415; 74176; 80053; 81003; 81025; 85025; 96361; 96374; 96375; 99284; J1885; J2405; J3490; J7030

== ENCOUNTER 2022-10-11 16:39 | Emergency (ER) | payer BC ==
[2022-10-11] MEDS ORDERED: Sodium Chloride 0.9% 2.5 ML Syringe FLUSH PRN (16:55)
[2022-10-11] MEDS ORDERED: Sodium Chloride 0.9% 10 ML Syringe FLUSH PRN (16:55)
[2022-10-11] MEDS ORDERED: Sodium Chloride 0.9% 1,000 ML IV STA (16:56)
[2022-10-11 17:02] LABS: BASOPHILS PERCENT AUTO 0.1 % (0.0-1.5); EOSINOPHILS ABSOLUTE AUTO 0.1 K/uL (0.0-0.7); EOSINOPHILS PERCENT AUTO 0.5 % (0.0-7.0); HEMATOCRIT 37.4 % (36.0-46.0); LYMPHOCYTES ABSOLUTE AUTO 1.4 K/uL (0.6-2.4); LYMPHOCYTES PERCENT AUTO 11.3 % (16.0-40.0); MEAN CORPUSCULAR HEMOGLOBIN 29.1 pg (27.0-32.0); MEAN CORPUSCULAR HGB CONC 34.8 g/dL (31.0-37.0); MEAN CORPUSCULAR VOLUME 83.7 fL (80.0-98.0); MONOCYTES ABSOLUTE AUTO 0.5 K/uL (0.0-0.8); MONOCYTES PERCENT AUTO 4.4 % (0.0-15.0); NEUTROPHILS ABSOLUTE AUTO 10.2 K/uL (1.4-5.7); NEUTROPHILS PERCENT AUTO 83.7 % (48.0-80.0); NRBC ABSOLUTE 0 K/uL; PLATELET COUNT,PLT 286 K/uL (150-400); RED BLOOD CELL COUNT 4.47 M/uL (4.30-5.90); WHITE BLOOD CELL COUNT,WBC 12.17 K/uL (4.0-11.0)
[2022-10-11 17:15] LABS: A/G RATIO 0.7 (0.9-1.6); BILIRUBIN TOTAL 0.3 mg/dL (0.2-1.0); CALCIUM 8.5 mg/dL (8.5-10.1); CARBON DIOXIDE,CO2 21.7 mmol/L (21.0-32.0); CREATININE 0.8 mg/dL (0.6-1.0); EST CRCL DRUG DOSING (CG) 95.72 mL/min; POTASSIUM,K 4.3 mmol/L (3.5-5.1); PROTEIN TOTAL,TP 7.3 g/dL (6.4-8.2)
[2022-10-11 17:57] LABS: APPEARANCE,URINE CLEAR; BILIRUBIN,URINE NEGATIVE (NEGATIVE); COLOR,URINE YELLOW; GLUCOSE,URINE NEGATIVE (NEGATIVE); KETONES,URINE NEGATIVE (NEGATIVE); LEUKOCYTE ESTERASE,URINE NEGATIVE (NEGATIVE); NITRITE,URINE NEGATIVE (NEGATIVE); OCCULT BLOOD,URINE NEGATIVE (NEGATIVE); PROTEIN,URINE 30 mg/dL (NEGATIVE); UROBILINOGEN,URINE 0.2 EU/dL (<2.0)
[2022-10-11 17:59] LABS: BACTERIA,URINE RARE (NEGATIVE); EPITHELIAL CELLS,URINE MODERATE (NONE-FEW); MUCUS,URINE MODERATE (NONE-MOD); RBC,URINE NONE SEEN (0-2/HPF); SQUAMOUS EPITHELIAL CELLS,UR MODERATE; WBC,URINE NONE SEEN (0-5/HPF)
[2022-10-11] MEDS ORDERED: cefTRIAXone 2 GM in Sodium Chloride 0.9% 50 ML IV STA (18:15)
[2022-10-11] MEDS ORDERED: fentaNYL 50 MCG/ML SDV IVPUSH STA (18:30)
== END 2022-10-11 19:56 | disposition home or self-care (01) ==
LOC: MW.ED 16:39
DX: J18.9 Pneumonia, unspecified organism (principal); K59.00 Constipation, unspecified
CPT/HCPCS: 36415; 71046; 74176; 80053; 81001; 81025; 83735; 85025; 93005; 96361; 96365; 96375; 99285; J0696; J3010; J3490; J7030; 93010; 99284